=== PATIENT | male | born 1995 | race Two or more races ===

== ENCOUNTER 2017-10-30 17:41 | Emergency (ER) | payer SELFPAY ==
[~2017-10-30] VITALS: Ht 177.8 cm; Wt 81.6 kg
--- NOTE | 2017-10-30 18:21 | Emergency Room Report ---
History of Present Illness General Chief Complaint: Skin Rash/Abscess Source: Patient Present Illness HPI Patient presents to ER complaining of bed bug bites over body since this morning. Patient reports bites are intensely pruritic. Patient states bug bites are all over his body except his face and groin. Patient states he stayed in a hostel in [place] last night and awoke this morning secondary to itching. Patient denies pain, bleeding, pus from bites. Patient denies fever, chest pain, SOB, nausea, vomiting. Allergies: Coded Allergies: No Known Allergies (Unverified , 10/30/17) Patient History Past Medical History: see triage record Social History: Reports: alcohol use, Denies: smoking, drug use Immunizations: UTD Reviewed Nursing Documentation: PMH: Agreed, PSxH: Agreed Nursing Documentation-PMH Past Medical History: No History, Except For Review of Systems All Other Systems: negative except mentioned in HPI Physical Exam Vital Signs Date Time Temp Pulse Resp B/P (MAP) Pulse Ox O2 Delivery O2 Flow Rate FiO2 10/30/17 17:50 97.9 80 16 129/85 94 Room Air Sp02 EP Interpretation: reviewed, normal General Appearance: no apparent distress, alert, GCS 15, non-toxic Head: normocephalic, atraumatic Respiratory: chest non-tender, lungs clear, normal breath sounds, no respiratory distress, speaking full sentences Cardiovascular #1: regular rate, rhythm Musculoskeletal: back normal, gait/station normal, normal range of motion, non- tender Neurologic: alert, oriented x3, responsive, motor strength/tone normal, sensory intact, speech normal Psychiatric: mood/affect normal Skin: normal color, warm/dry, well hydrated, rash - diffuse maculopapular rash over chest, back, bilateral upper and lower extremities Medical Decision Making PA Attestation Dr. Patino is my supervising Physician whom patient management has been discussed with. Diagnostic Impression: Primary Impression: Rash and other nonspecific skin eruption ER Course Pt. presents to the ED c/o bug bites over entire body. Ddx considered but are not limited to rash, atopic dermatitis, bed bugs, scabies. Vital signs: are WNL, pt. is afebrile. ORDERS: None required at this time, the diagnosis is clinical ED INTERVENTIONS: Hydroxyzine Prednisone DISCHARGE: -Rx provided for Hydroxyzine for pruritic symptoms. -Rx provided for Permetrhin cream. At this time pt. is stable for d/c to home. Will provide printed patient care instructions, and any necessary prescriptions. Care plan and follow up instructions have been discussed with the patient prior to discharge. Patient instructed to follow-up with primary care provider in 3 - 5 days and discuss further referral to [employer]. Patient questions asked and answered. ER precautions given. Patient instructed to return to ER immediately for any new or worsening of symptoms including but not limited to increasing SOB, persistent fever. Last Vital Signs Date Time Temp Pulse Resp B/P (MAP) Pulse Ox O2 Delivery O2 Flow Rate FiO2 10/30/17 17:50 97.9 80 16 129/85 94 Room Air Disposition: HOME, SELF-CARE Condition: Stable Scripts Permethrin* (ELIMITE*) 60 Gm Cream..g. 1 APPLIC TOPIC ONCE, #60 GM 0 Refills Apply cream from head to toe; leave on for 8-14 hours before washing off with water; may reapply in 1 week if live mites appear. Prov: Johny Collier 10/30/17 Hydroxyzine Pamoate* (VISTARIL*) 50 Mg Capsule 50 MG ORAL EVERY 6 HOURS, #20 TAB 0 Refills Prov: Johny Collier 10/30/17 Patient Instructions: Bedbugs, [id number] Additional Instructions: Followup with primary care provider in 3 -5 days. Take medications as directed. Patient questions asked and answered. ER precautions given, patient instructed to return to ER immediately for any new or worsening of symptoms. Johny Collier Oct 30, 2017 18:21
[2017-10-30] MEDS ORDERED: PERMETHRIN60 GM TOPIC (18:30)
[2017-10-30] MEDS ORDERED: VISTARIL50 MG ORAL (18:30)
[2017-10-30] MEDS ORDERED: HydrOXYzine tab 25 MG TAB ORAL ONE (18:30)
[2017-10-30 18:40] VITALS: BP 129/85
[2017-10-30 18:43] VITALS: BP 129/85
== END 2017-10-30 18:44 | disposition home or self-care (01) ==
LOC: EMR 18:35
DX: R21 Rash and other nonspecific skin eruption (principal)
CPT/HCPCS: 99283; J7512